=== PATIENT | male | born 1950 | race Caucasian/White ===

== ENCOUNTER 2019-01-03 10:12 | Day surgery (SDC) | payer OTHER, MEDICARE ==
[2018-12-25 13:40] VITALS: BMI 25.4
[2019-01-03] MEDS ORDERED: MIDAZOLAM HCL 2 MG/2 ML SINGLE DOSE VIAL ONE (11:10)
[2019-01-03] MEDS ORDERED: LIDOCAINE HCL 2% (50ML VIAL) NR ONE (11:49)
[2019-01-03 13:45] VITALS: BP 124/72; PULSE 71; TEMP 98.1
[2019-01-03] MEDS ORDERED: oxyCODONE HCL 5 MG TABLET PO PRN (15:16)
[2019-01-03] MEDS ORDERED: ACETAMINOPHEN 325 MG TABLET (FP) PO PRN (15:16)
[2019-01-03] MEDS ORDERED: ONDANSETRON 4 MG/2 ML VIAL IVPUSH PRN (15:16)
[2019-01-03] MEDS ORDERED: LACTATED RINGERS SOLUTION 1,000 ML IV SCH (15:30)
--- NOTE | 2019-01-03 19:06 | OP ---
DATE OF OPERATION: 01/03/2019 PREOPERATIVE DIAGNOSIS: Right carpal tunnel syndrome. POSTOPERATIVE DIAGNOSIS: Right carpal tunnel syndrome. OPERATIVE PROCEDURE: Right carpal tunnel release. SURGEON: Alec Jack M.D. ANESTHESIA: Local sedation. COMPLICATIONS: None. ESTIMATED BLOOD LOSS: Minimal. INDICATION FOR PROCEDURE: The patient is a 58-year-old male with the above findings, indicated for operative treatment. Risks, benefits, and alternatives were discussed with the patient at length. Proper informed consent was obtained. PROCEDURE: After proper identification of the patient and correct operative site, patient was brought to the operating room and placed supine on the operating table, all bony prominences well padded. Sedation and local anesthesia were given. Right upper extremity was prepped and draped in the usual sterile fashion. Well-padded tourniquet was placed with a sterile prep. Esmarch bandage to exsanguinate the right upper extremity. Longitudinal incision was made in the proximal aspect of the palm. Incision was taken sharply through the skin with blunt and sharp dissection through subcutaneous tissues. The palmar fascia was divided longitudinally. The transcarpal ligament along with the distal 4 cm of the antebrachial fascia was divided longitudinally under direct visualization under direct visualization with loupe magnification. This provided complete release of the median nerve at the wrist. Wound was irrigated and repaired with 5-0 plain gut suture. Sterile dressing was applied. The patient was brought to the recovery room in stable condition. She tolerated the procedure well. ALEC JACK M.D. GRETEL/[id number]
== END 2019-01-03 13:45 | disposition home or self-care (01) ==
LOC: FASU 10:12
PROVIDERS: ATTEND Orthopaedic Surgery Hand Surgery
PROC: 01N50ZZ Release Median Nerve, Open Approach (ICD-10-PCS; principal; 2019-01-03 11:30)
DX: G56.01 Carpal tunnel syndrome, right upper limb (principal)

== ENCOUNTER 2024-12-13 07:34 | Day surgery (SDC) | payer OTHER ==
[2024-12-04 15:24] VITALS: BMI 25.0
[2024-12-13] MEDS ORDERED: MIDAZOLAM HCL 2 MG/2 ML SINGLE DOSE VIAL ONE ×2 (08:03→09:45)
[2024-12-13 08:11] VITALS: TEMP 97.3
[2024-12-13] MEDS ORDERED: LIDOCAINE 1%/EPI 1:100000 (20 ML MULTI DOSE VIAL) ONE (08:38)
[2024-12-13] MEDS ORDERED: PROPOFOL 20 ML ONE (09:49)
[2024-12-13] MEDS ORDERED: ceFAZolin SODIUM 1 GM VIAL ONE (09:53)
[2024-12-13] MEDS ORDERED: DEXAMETHASONE SOD PHOSPHATE 4 MG/1 ML VIAL ONE (09:58)
[2024-12-13] MEDS ORDERED: KETOROLAC TROMETHAMINE 30 MG/1 ML VIAL ONE (09:58)
[2024-12-13] MEDS ORDERED: ONDANSETRON 4 MG/2 ML VIAL ONE (09:58)
[2024-12-13] MEDS: LIDOCAINE 1%/EPI 1:100000 (20 ML MULTI DOSE VIAL) IJ ONE (10:13)
[2024-12-13 10:40] VITALS: RESP 18
[2024-12-13 11:01] VITALS: BP 124/71; PULSE 68
== END 2024-12-13 11:08 | disposition home or self-care (01) ==
LOC: FASU 07:34
PROVIDERS: ATTEND Orthopaedic Surgery Sports Medicine
PROC: 01N50ZZ Release Median Nerve, Open Approach (ICD-10-PCS; principal; 2024-12-13 09:56)
DX: G56.02 Carpal tunnel syndrome, left upper limb (principal)